=== PATIENT | female | born 1995 ===

== ENCOUNTER 2017-01-06 20:19 | Emergency (ER) | payer MEDICAID ==
[2017-01-06 21:15] VITALS: BMI 36.3
[2017-01-06 21:25] VITALS: BP 130/80
--- NOTE | 2017-01-06 21:28 | ED PDOC ---
Arrival/HPI <Duy Hadley - Last Filed: 01/06/17 22:46> - General Historian: Patient - History of Present Illness Time/Duration: > week Symptom Course: Intermittent Quality: Stabbing Severity Level: 8 <Mariana Chand - Last Filed: 01/06/17 23:28> - General Chief Complaint: Eye Problem Time Seen by Provider: 01/06/17 20:55 - History of Present Illness Narrative History of Present Illness (Text): 01/06/17 21:41 21 yo F with no past medical history presents with one week h/o right ear pain radiating to right eye as well as right neck pain. Patient states she was admitted at [facility] and discharged 3 days ago. Patient states she had CT and MRI of the head and neck during that admission and was discharged with neuro followup, however she states she was unable to see neurology due to insurance issues. Admits to subjective fevers, chills, intermittent sharp right facial pain between the right neck, ear and eye. Patient denies CP, SOB, abd pain, diarrhea, rashes. Admits to nausea and vomiting, unable to tolerate PO intake since this morning. (Mariana Chand) Past Medical History - Provider Review Nursing Documentation Reviewed: Yes - Travel History Have you recently traveled outside [place] w/in the past 3 mons?: No - Cardiac Hx Hypertension: Yes - Pulmonary Hx Respiratory Disorders: No - Neurological Hx Neurological Disorder: No - HEENT Hx HEENT Disorder: No - Renal Hx Renal Disorder: No - Endocrine/Metabolic Hx Endocrine Disorders: No - Hematological/Oncological Hx Blood Disorders: No - Integumentary Hx Dermatological Disorder: No - Musculoskeletal/Rheumatological Hx Musculoskeletal Disorders: No - Gastrointestinal Hx Gastrointestinal Disorders: No - Genitourinary/Gynecological Hx Genitourinary Disorders: No - Psychiatric Hx Psychophysiologic Disorder: No Hx Substance Use: No - Surgical History Other/Comment: Cyst removal on both arms - Anesthesia Hx Anesthesia: Yes Hx Anesthesia Reactions: No <Mariana Chand - Last Filed: 01/06/17 23:28> Family/Social History - Physician Review Nursing Documentation Reviewed: Yes Family/Social History: No Known Family HX Smoking Status: Never Smoked Hx Alcohol Use: No Hx Substance Use: No <Mariana Chand - Last Filed: 01/06/17 23:28> Allergies/Home Meds <Duy Hadley - Last Filed: 01/06/17 22:46> <Mariana Chand - Last Filed: 01/06/17 23:28> Allergies/Adverse Reactions: Allergies No Known Allergies Allergy (Verified 01/06/17 21:15) Review of Systems - Physician Review All systems were reviewed & negative as marked: Yes - Review of Systems Constitutional: Normal, Fevers. absent: Fatigue Eyes: Eye Pain (right). absent: Vision Changes, Photophobia ENT: Tinnitus. absent: Hearing Changes, Epistaxis Respiratory: absent: SOB, Cough Cardiovascular: absent: Chest Pain, Palpitations, Calf Pain, NUNES, Syncope Gastrointestinal: Nausea, Vomiting. absent: Abdominal Pain, Constipation, Diarrhea Genitourinary Female: absent: Dysuria, Frequency Musculoskeletal: Neck Pain (right neck). absent: Back Pain Skin: absent: Rash, Skin Lesions Neurological: Headache (right frontal). absent: Focal Weakness Endocrine: Normal. absent: Diaphoresis Hemo/Lymphatic: absent: Easy Bleeding, Easy Bruising Psychiatric: absent: Anxiety, Depression <Mariana Chand - Last Filed: 01/06/17 23:28> Physical Exam Vital Signs Reviewed: Yes Temperature: Afebrile Blood Pressure: Normal Pulse: Regular Respiratory Rate: Normal Appearance: Positive for: Well-Appearing, Non-Toxic, Comfortable Pain Distress: None Mental Status: Positive for: Alert and Oriented X 3 - Systems Exam Head: Present: Atraumatic, Normocephalic. No: Tenderness Pupils: Present: PERRL. No: Sluggish, Non-Reactive, Pinpoint Extroacular Muscles: Present: EOMI Conjunctiva: Present: Normal (no tearing, no redness, no edema). No: Injected, Icteric Ears: Present: Normal (some wax, no impaction, TM clear BL), NORMAL TM. No: Erythema, TM Perf Mouth: Present: Moist Mucous Membranes Pharnyx: No: ERYTHEMA, EXUDATE, TONSILS ENLARGED, Peritonsilar Swelling, Uvular Deviation, Strider Nose (External): Present: Atraumatic Nose (Internal): Present: Normal Inspection, No Active Bleeding. No: Boggy, Purulent Mucous Neck: Present: Normal Range of Motion, Other (mild right cervical muscle spasm) . No: Meningeal Signs, JVD, Lymphadenopathy Respiratory/Chest: Present: Clear to Auscultation, Good Air Exchange. No: Respiratory Distress, Accessory Muscle Use, Wheezes, Rhonchi Cardiovascular: Present: Regular Rate and Rhythm, Normal S1, S2. No: Murmurs Abdomen: Present: Normal Bowel Sounds. No: Tenderness, Distention, Peritoneal Signs Upper Extremity: Present: Normal Inspection. No: Cyanosis, Edema Lower Extremity: Present: Normal Inspection, CALF TENDERNESS, NORMAL PULSES, Capillary Refill < 2 s. No: Edema Neurological: Present: GCS=15, CN II-XII Intact, Speech Normal Skin: Present: Warm, Dry, Normal Color. No: Rashes Lymphatic: No: Cervical Adenopathy Psychiatric: Present: Alert, Oriented x 3, Normal Insight, Normal Concentration <Mariana Chand - Last Filed: 01/06/17 23:28> Vital Signs Temp Pulse Resp BP Pulse Ox 01/06/17 21:22 98 F 69 18 130/80 100 Medical Decision Making - Lab Interpretations I have reviewed the lab results: Yes <Duy Hadley - Last Filed: 01/06/17 22:46> Re-evaluation Time: 22:25 Reassessment Condition: Re-examined, Improved <Mariana Chand - Last Filed: 01/06/17 23:28> ED Course and Treatment: Impression: Pt seen and evaluated with medical technologist. Pt, with no significant past medical history, presented complaining of right ear pain radiating to right neck , with associated fever, chills, and right-sided facial pain. Pt was recently admitted to [facility] for similar complaint with neurology follow-up. Aware and agree with HPI, clinical findings, plan, and management. Plan: -- Labs -- UA, urine culture -- IV fluids -- Zofran -- Lioresal -- Protonix -- Percocet -- Reassess and disposition Progress Notes: (Duy Hadley) 01/06/17 21:54 21yo F with no medical history presents with R facial pain and nausea, non- bloody, non-mucinous emesis. Labs, Baclofen, percocet, NS bolus, Zofran. 01/06/17 22:25 patient states she feels a little better, still having some pain but improved severity. 01/06/17 23:07 Patient states she was referred to Dr. Snowden at discharge from [facility] but was told they did not take her insurance when she tried to make an appt. 01/06/17 23:20 Patient states she feels better. Diagnosis discussed, neurology followup stressed, now referrals made. All questions answered. (Mariana Chand) - Lab Interpretations Lab Results: 01/06/17 22:09 01/06/17 22:29 Lab Results 01/06/17 22:29: Sodium 138, Potassium 4.0, Chloride 103, Carbon Dioxide 27, Anion Gap 12, BUN 8, Creatinine 0.7, Est GFR ( Amer) > 60, Est GFR (Non- Af Amer) > 60, Random Glucose 98, Calcium 8.8, Total Bilirubin 0.4, AST 24, ALT 34, Alkaline Phosphatase 64, Total Protein 7.6, Albumin 3.9, Globulin 3.7, Albumin/Globulin Ratio 1.1 01/06/17 22:09: WBC 12.2 H, RBC 4.77, Hgb 12.4, Hct 37.2, MCV 78.0 L, MCH 26.0, MCHC 33.3, RDW 13.8, Plt Count 287, MPV 8.2, Gran % 75.5 H, Lymph % (Auto) 18.8 L, [place] % (Auto) 5.2, Eos % (Auto) 0.4 L, Baso % (Auto) 0.1, Gran # 9.19 H, Lymph # 2.3, [place] # 0.6, Eos # 0.1, Baso # 0.01, Urine Color Yellow, Urine Appearance Slight-cloudy, Urine pH 7.0, Ur Specific [place] 1.015, Urine Protein Negative, Urine Glucose (UA) Negative, Urine Ketones Negative, Urine Blood Moderate H, Urine Nitrate Negative, Urine Bilirubin Negative, Urine Urobilinogen 1.0 H, Ur Leukocyte Esterase Small H, Urine RBC 2 - 5, Urine WBC 2 - 5, Ur Epithelial Cells 6 - 8, Urine Bacteria Mod, Urine HCG, Qual Negative - Medication Orders Current Medication Orders: Baclofen (Lioresal) 10 mg PO ONCE ONE Stop: 01/07/17 21:34 Discontinued Medications Sodium Chloride (Sodium Chloride 0.9%) 1,000 mls @ 999 mls/hr IV .Q1H1M STA Stop: 01/06/17 22:31 Last Admin: 01/06/17 22:10 Dose: 999 MLS/HR eMAR Start Stop Document 01/06/17 22:10 [email or web address] (Rec: 01/06/17 22:[email or web address]) Intravenous Solution Start Date 01/06/17 Start Time 22:10 End Date 01/06/17 Ondansetron HCl (Zofran Inj) 4 mg IVP STAT STA Stop: 01/06/17 21:32 Last Admin: 01/06/17 22:10 Dose: 4 MG IVP Administration Document 01/06/17 22:10 [email or web address] (Rec: 01/06/17 22:[email or web address]) Charges for Administration # of IVP Administrations 1 Oxycodone/Acetaminophen (Percocet 5/325 Mg Tab) 1 tab PO STAT STA Stop: 01/06/17 21:41 Last Admin: 01/06/17 22:10 Dose: 1 TAB - PA / FACILITY TECHNICIAN / Resident Statement ARIANNA has reviewed & agrees with the documentation as recorded. / has examined the patient and agrees with the treatment plan. <Duy Hadley - Last Filed: 01/06/17 22:46> Disposition/Present on Arrival <Duy Hadley - Last Filed: 01/06/17 22:46> - Present on Arrival Any Indicators Present on Arrival: No History of DVT/PE: No History of Uncontrolled Diabetes: No Urinary Catheter: No History of Decub. Ulcer: No History Surgical Site Infection Following: None - Disposition Have Diagnosis and Disposition been Completed?: Yes Disposition Time: 23:27 Patient Plan: Discharge <Mariana Chand - Last Filed: 01/06/17 23:28> - Disposition Diagnosis: Otalgia Disposition: HOME/ ROUTINE Condition: STABLE Discharge Instructions (ExitCare): Earache (ED) Print Language: MALAY Additional Instructions: Please followup with your primary care physician within 1-3 days. Please call and make an appointment with neurology within 1-2 days. Prescriptions: Baclofen [Lioresal] 10 mg PO BID PRN #20 tab PRN Reason: Pain, Moderate (4-7) Ondansetron ODT [Zofran ODT] 4 mg PO Q6 PRN #20 odt PRN Reason: Nausea/Vomiting Referrals: Anish Sampson MD [Primary Care Provider] - Follow up with primary Mark Anthony Butler MD [Staff Provider] - Follow up with primary Leighann Joyner MD [Staff Provider] - Follow up with primary Luigi Sawyer MD [Staff Provider] - Follow up with primary
[2017-01-06] MEDS ORDERED: Sodium Chloride 0.9% 1,000 ML IV STA (21:31)
[2017-01-06] MEDS ORDERED: Oxycodone/Acetaminophen 5/325 mg Tab PO STA (21:40)
[2017-01-06 22:10] LABS: ADD MANUAL DIFF? NO
[2017-01-06 22:15] LABS: BASO # 0.01 K/mm3 (0.0-2.0); BASO % 0.1 % (0.0-3.0); EOS # 0.1 (0.0-0.7); EOS % 0.4 % (1.5-5.0); GRAN # 9.19 (1.4-6.5); GRAN % 75.5 % (50.0-68.0); HEMATOCRIT 37.2 % (36.0-48.0); LYMPH # 2.3 (1.2-3.4); LYMPH % 18.8 % (22.0-35.0); MEAN CORPUSCULAR HGB CONC 33.3 g/dl (31.0-37.0); MEAN PLATELET VOLUME 8.2 fl (7.0-11.0); MONO # 0.6 (0.1-0.6); MONO % 5.2 % (1.0-6.0); PLATELET COUNT 287 10^3/uL (120.0-450.0); RED CELL DISTRIBUTION WIDTH 13.8 % (11.5-14.5); URINE BILIRUBIN NEGATIVE (NEGATIVE); URINE BLOOD MODERATE (NEGATIVE); URINE GLUCOSE (UA) NEGATIVE (NEGATIVE); URINE KETONE NEGATIVE (NEGATIVE); URINE LEUKOCYTE ESTERASE SMALL Leu/uL (NEGATIVE); URINE PROTEIN NEGATIVE mg/dL (<30 mg/dL); WHITE BLOOD COUNT 12.2 10^3/ul (4.5-11.0)
[2017-01-06 22:19] LABS: URINE APPEARANCE SLIGHT-CLOUDY (CLEAR); URINE COLOR YELLOW (YELLOW)
[2017-01-06 22:31] LABS: URINE BACTERIA MOD (NEG)
[2017-01-06 23:01] LABS: ALB/GLOB RATIO 1.1 (1.1-1.8); ALKALINE PHOSPHATASE 64 U/L (38-133); ALT/SGPT 34 U/L (7-56); AST/SGOT 24 U/L (15-39); BILIRUBIN,TOTAL 0.4 mg/dL (0.2-1.3); BLOOD UREA NITROGEN 8 mg/dL (7-21); CALCIUM 8.8 mg/dL (8.4-10.5); CARBON DIOXIDE 27 mmol/L (21-33); CHLORIDE 103 mmol/L (98-107); GFR AFRICAN-AMERICAN > 60; GLUCOSE,RANDOM 98 mg/dL (70-110); SODIUM 138 mmol/L (132-148); TOTAL PROTEIN 7.6 g/dL (5.8-8.3)
[2017-01-07 00:53] VITALS: PULSE 70; RESP 16; TEMP 98.9; O2SAT 99
== END 2017-01-07 00:55 | disposition home or self-care (01) ==
LOC: ED 20:19 → MERGE 20:19 → ED 01-07 00:55
DX: H92.01 Otalgia, right ear (principal); I10 Essential (primary) hypertension
CPT/HCPCS: 80053; 81001; 84703; 85025; 87086; 96374; 99284; J2405; J7040